=== PATIENT | female | born 1965 | race Caucasian/White ===

== ENCOUNTER → 2016-07-24 | Outpatient (REF) | payer BC | LOC: M SFHCWAGY 14:24 | PROVIDERS: ATTEND Nurse Practitioner Women's Health | DX: Z12.4 Encounter for screening for malignant neoplasm of cervix (principal) ==

== ENCOUNTER → 2016-07-24 | Outpatient (CLI) | payer BC ==
--- NOTE | 2016-07-24 15:09 | REPMRS ---
Patient History The patient states she had a clinical breast exam in 07/2016. No known family history of cancer. Taking hormonal contraceptives for 12 years. Digital Woman Screen Mammo: July 24, 2016 - Exam #: [id number] Bilateral CC and MLO view(s) were taken. Technologist: Naomy Phillips, Technologist Prior study comparison: May 25, 2015, digital woman screen mammo performed at [facility]. March 24, 2014, digital woman screen mammo performed at [facility]. November 25, 2012, digital woman screen mammo performed at [facility]. FINDINGS: There are scattered fibroglandular densities. There has been no change in the appearance of the mammogram from the prior studies. There is a mild amount of scattered fibroglandular density which is fairly symmetric. There is no interval development of dominant mass, architectural distortion, or clustered microcalcification suggestive of malignancy. ASSESSMENT: BI-RADS/ACR category 1 mammogram. Negative. Recommendation Routine screening mammogram in 1 year (for women over age 40). This mammogram was interpreted with the aid of an FDA-approved computer-aided dectection system. Electronically Signed By: Serafin Cook MD 07/24/16 5828
== END ==
LOC: M WHC 13:11
PROVIDERS: ATTEND Nurse Practitioner Women's Health
DX: Z12.31 Encounter for screening mammogram for malignant neoplasm of breast (principal)

== ENCOUNTER → 2017-07-25 | Outpatient (REF) | payer BC | LOC: M SFHCWAGY 13:23 | DX: Z12.4 Encounter for screening for malignant neoplasm of cervix (principal) | CPT/HCPCS: G0123 ==

== ENCOUNTER → 2017-07-25 | Outpatient (CLI) | payer BC | LOC: M WHC 13:13 | DX: Z12.31 Encounter for screening mammogram for malignant neoplasm of breast (principal) | CPT/HCPCS: 77067 ==

== ENCOUNTER → 2018-08-25 | Outpatient (CLI) | payer BC ==
--- NOTE | 2018-08-25 11:07 | REPMRS ---
Patient History The patient states she had a clinical breast exam in 08/2018. No known family history of cancer. Taking hormonal contraceptives for 14 years. Digital Woman Screen Mammo: August 25, 2018 - Exam #: [id number] Bilateral CC and MLO view(s) were taken. Technologist: Naomy Phillips, Technologist Prior study comparison: July 25, 2017, digital woman screen mammo performed at [facility]. November 25, 2012, digital woman screen mammo performed at [facility]. FINDINGS: There are scattered fibroglandular densities. Bilateral screening digital mammogram with tomosynthesis: The patient states that there are no palpable abnormalities or other breast complaints. The patient's Ty[place] Lifetime Breast Carcinoma Risk is:12.1 There are scattered areas of fibroglandular density.. There is no interval development of dominant mass, areas of architectural distortion, or clustered microcalcification typical of malignancy. There are no additional findings on tomosynthesis. No significant changes when compared with prior studies. Assessment: BI-RADS/ACR category 1 mammogram. Negative Mammogram. Recommendation Routine screening mammogram in 1 year (for women over age 40). This mammogram was interpreted with the aid of an FDA-approved computer-aided dectection system. A. Negative x-ray reports should not delay biopsy if a dominant or clinically suspicious mass is present. B. Not all cancers are identified by mammography. C. Adenosis and dense breast may obscure an underlying neoplasm. Electronically Signed By: Hugh Cooper M.D. 08/25/18 0601
== END ==
LOC: M WHC 09:38
PROVIDERS: ATTEND Nurse Practitioner Women's Health
DX: Z12.31 Encounter for screening mammogram for malignant neoplasm of breast (principal); Z79.3 Long term (current) use of hormonal contraceptives

== ENCOUNTER 2019-03-28 13:27 | Observation (INO) | payer BC ==
[2019-03-28] MEDS ORDERED: SUMA100T2 PO (13:44)
[2019-03-28] MEDS ORDERED: SRONYX (13:44)
[2019-03-28] MEDS ORDERED: LEVO75TA4 PO (13:44)
[2019-03-28] MEDS ORDERED: NS 1,000 ML IV ONE (13:45)
[2019-03-28 13:52] LABS: BASO % 0.2 % (0.0-1.0); EOS # 0.1 10^3/uL (0.0-0.5); EOS % 0.7 % (0.0-3.0); HEMATOCRIT 40.2 % (36.0-47.0); HEMOGLOBIN 12.8 g/dl (12.0-15.5); LYMPH # 3.2 10^3/uL (1.5-5.0); LYMPH % 35.6 % (24.0-44.0); MEAN CORPUSCULAR HEMOGLOBIN 30.6 pg (27.0-33.0); MEAN CORPUSCULAR HGB CONC 31.8 g/dl (32.0-36.5); MEAN CORPUSCULAR VOLUME 96.2 fl (80.0-96.0); MONO # 0.4 10^3/uL (0.0-0.8); MONO % 4.8 % (0.0-5.0); NEUTROPHILS # 5.2 10^3/uL (1.5-8.5); NEUTROPHILS % 58.5 % (36.0-66.0); PLATELET COUNT, AUTOMATED 194 10^3/uL (150-450); RED BLOOD COUNT 4.18 10^6/uL (4.00-5.40); WHITE BLOOD COUNT 8.9 10^3/uL (4.0-10.0)
[2019-03-28] MEDS ORDERED: LEVO0.1T PO (13:56)
[2019-03-28] MEDS ORDERED: ONDANSETRON 4MG/2ML VIAL (J2405) IV ONE (14:00)
[2019-03-28 14:11] LABS: INR 1.01
[2019-03-28 14:12] LABS: PARTIAL THROMBOPLASTIN TIME 27.2 SECONDS (25.0-38.4)
--- NOTE | 2019-03-28 14:22 | REP ---
AP PORTABLE CHEST: 03/28/2019. Clinical history: Chest pain. Findings: The upright AP chest shows lungs well inflated and clear. CP angles sharply defined. There is no effusion, infiltrate, atelectasis or mass. Heart, mediastinal and hilar contours are normal. Aorta and airway intact. Bones are unremarkable. No free air under the diaphragm. Impression: 1. No acute cardiopulmonary change. Electronically Signed by Stoney Henry MD 03/28/2019 02:13 P
[2019-03-28 14:23] LABS: ALBUMIN 3.9 GM/DL (3.2-5.2); ALT/SGPT 18 U/L (12-78); BILIRUBIN,DIRECT < 0.1 MG/DL (0.0-0.2); BILIRUBIN,TOTAL 0.2 MG/DL (0.2-1.0); BLOOD UREA NITROGEN 14 MG/DL (7-18); CALCIUM LEVEL 8.9 MG/DL (8.5-10.1); CARBON DIOXIDE LEVEL 27 MEQ/L (21-32); CHLORIDE LEVEL 108 MEQ/L (98-107); CK-MB VALUE MASS < 1.0 NG/ML (<3.6); CPK CREATINE PHOSPHOKINASE 79 U/L (26-192); CREATININE FOR GFR 0.82 MG/DL (0.55-1.30); FREE T4 1.15 NG/DL (0.76-1.46); GLOMERULAR FILTRATION RATE > 60.0 (>51); GLUCOSE, FASTING 90 MG/DL (70-100); LIPASE 118 U/L (73-393); MAGNESIUM LEVEL 2.3 MG/DL (1.8-2.4); MB/CK RELATIVE INDEX 1.27 (< OR =4); POTASSIUM SERUM 3.7 MEQ/L (3.5-5.1); SODIUM LEVEL 140 MEQ/L (136-145); TOTAL PROTEIN 7.3 GM/DL (6.4-8.2); TROPONIN I < 0.02 NG/ML (< 0.10)
[2019-03-28] MEDS ORDERED: SUMAtriptan SUCCINATE 25 MG TAB PO PRN (15:15)
[2019-03-28] MEDS ORDERED: MAALOX 30 ML SUSP *UDC PO PRN (15:15)
[2019-03-28] MEDS ORDERED: MOM 30ML SUSPENSION UDC PO PRN (15:15)
[2019-03-28] MEDS ORDERED: ACETAMINOPHEN TAB 650MG DOSE (2X325MG) PO PRN (15:15)
--- NOTE | 2019-03-28 15:23 | HPEPDOC ---
General Date of Admission 03/28/19 Date of Service: Mar 28, 2019 Chief Complaint The patient is a 53-year-old female admitted with a reason for visit of Syncope. Source: Patient Exam Limitations: No limitations Timing/Duration: This afternoon, Other Severity: Other ( not applicable) Associated Symptoms: Diaphoresis, Other (syncope with LOC for 30 seconds) History of Present Illness 53 years old white female past medical history of hypothyroidism, migraine headache, was having the lunch with her friends while she eating salad. She had a sudden episode of diaphoresis followed by syncopal episode for possible consciousness for 30 seconds, people from nearby table performed to do a CPR on her by forcing the air in her mouth. Patient is asymptomatic in no distress. Off ers no complaints at the present time. Patient denies any aura or seizure-like activity or postictal symptoms. On the scene. Home Medications Scheduled Levonorgestrel-Ethin Estradiol (Levonor-Eth Estrad 0.1-0.02 mg) 1 Each Tablet, 1 TAB PO DAILY, (Reported) Levothyroxine Sodium (Levothyroxine Sodium) 75 Mcg Tablet, 75 MCG PO DAILY, (Reported) Scheduled PRN Sumatriptan Succinate (Sumatriptan Succinate) 100 Mg Tablet, 100 MG PO DAILY PRN for MIGRAINE, (Reported) MAY REPEAT AFTER ONE HOUR IF SYMPTOMS PERSIST Allergies Coded Allergies: No Known Allergies (Verified , 09/07/02) Past Medical History Medical History Hypothyroidism, migraine headaches Surgical History None Family History Significant Family History: No pertinent family hx Social History * Smoker: Denies Alcohol: Denies Drugs: denies A-FIB/CHADSVASC A-FIB History Current/History of A-Fib/PAF?: No Review of Systems Constitutional: Denies: Chills, Fever, Malaise, Night Sweats, Weakness, Fatigue, Weight Loss, Lethargy, Other Eyes: Denies: Pain, Vision change, Conjunctivae inflammation, Eyelid inflammation, Redness, Other ENT: Denies: Head Aches, Ear Pain, Dysphagia, Sinus Congestion, Post Nasal Drip, Sore Throat, Epistaxis, Other Symptoms Skin: Denies: Rash, Lesions, Jaundice, Bruising, Itching, Dry, Breakdown, Nail Changes, Other Pulmonary: Denies: Dyspnea, Cough, Pleuritic Chest Pain, Other Symptoms Cardiovascular: Reports: Other Symptoms; Denies: Chest Pain, Palpitations, Orthopnea, Paroxysmal Noc. Dyspnea, Edema, Lt Headedness Gastrointestinal: Denies: Nausea, Vomiting, Abdominal Pain, Diarrhea, Constipation, Melena, Hematochezia, Other Symptoms Genitourinary: Denies: Dysuria, Frequency, Incontinence, Hematuria, Retention, Other Symptoms Hematologic: Denies: Bruising, Bleeding Excessively, Petecchia, Purpura, En larged Lymph Nodes, Other Hematologic Endocrine: Denies: Polydipsia, Polyphagia, Polyuria, Heat Intolerance, Cold Intolerance, Other Endocrine Sx Musculoskeletal: Denies: Neck Pain, Back Pain, Shoulder Pain, Arm Pain, Hand Pain, Leg Pain, Foot Pain, Joint Pain, Muscle Pain, Spasms, Other Symptoms Neurological: Reports: Other Symptoms (, syncope with LOC for 30 seconds) Psych: Denies: Mood Normal, Anxiety, Depression, Memory Issues, Thoughts of Self Harm, Anger, Thoughts of Harming Other, Other Psych Physical Examination General Exam: Positive: Alert, Cooperative Eye Exam: Positive: PERRLA, Conjunctiva & lids normal, EOMI ENT Exam: Positive: Atraumatic Neck Exam: Positive: Supple Chest Exam: Positive: Clear to auscultation, Normal air movement Heart Exam: Positive: Rate Normal, Normal S1, Normal S2 Abdomen Exam: Positive: Normal bowel sounds, Soft Extremity Exam: Positive: Normal pulses Skin Exam: Positive: Nl turgor and temperature Neuro Exam: Positive: Strength at 5/5 X4 ext, Sensation Intact, Cranial Nerves 3-12 NL Psych Exam: Positive: Mood NL, Oriented x 3 Vital Signs Vital Signs Date Time Temp Pulse Resp B/P (MAP) Pulse Ox O2 Delivery O2 Flow Rate FiO2 03/28/19 13:34 96.7 79 16 121/70 100 Room Air Laboratory Data Labs 24H Laboratory Tests 2 03/28/19 13:40: Prothrombin Time 13.0, Prothromb Time International Ratio 1.01, Activated Partial Thromboplast Time 27.2 03/28/19 13:41: Immature Granulocyte % (Auto) 0.2, Neutrophils (%) (Auto) 58.5, Lymphocytes (%) (Auto) 35.6, Monocytes (%) (Auto) 4.8, Eosinophils (%) (Auto) 0.7, Basophils (%) (Auto) 0.2, Neutrophils # (Auto) 5.2, Lymphocytes # (Auto) 3.2, Monocytes # (Auto) 0.4, Eosinophils # (Auto) 0.1, Basophils # (Auto) 0.0, Nucleated Red Blood Cells % (auto) 0.0, Anion Gap 5L, Glomerular Filtration Rate > 60.0, Calcium Level 8.9, Magnesium Level 2.3, Total Bilirubin 0.2, Direct Bilirubin < 0.1, Aspartate Amino Transf (AST/SGOT) 15, Alanine Aminotransferase (ALT/SGPT) 18, Alkaline Phosphatase 58, Total Creatine Kinase 79, Creatine Kinase MB < 1.0, Creatine Kinase MB Relative Index 1.27, Troponin I < 0.02, Total Protein 7.3, Albumin 3.9, Albumin/Globulin Ratio 1.15, Lipase 118, Thyroid Stimulating Hormone (TSH) 7.000H, Free Thyroxine 1.15 03/28/19 13:42: POC Glucose (Misc Panel) 98, POC Sodium (Misc Panel) 140, POC Potassium (Misc Panel) 3.4L, POC Chloride (Misc Panel) 106, POC Total CO2 (Misc Panel) 23.0, POC Blood Urea Nitrogen (Misc Panel 14, POC Ionized Calcium (Misc Panel) 4.8, POC Creatinine (Misc Panel) 0.7, POC Hematocrit (Misc Panel) 40.0 CBC/BMP Laboratory Tests 03/28/19 13:41 Problems (1) Syncope Status: Acute Problem Text: 53 years old white female past medical history of hypothyroidism, migraine headache, was having the lunch with her friends while she eating salad. She had a sudden episode of diaphoresis followed by syncopal episode for possible consciousness for 30 seconds, people from nearby table performed to do a CPR on her by forcing the air in her mouth. Patient is asymptomatic in no distress. Offers no complaints at the present time. Patient denies any aura or seizure-like activity or postictal symptoms. On the scene. Admit to PCU with telemetry to cardiac rhythm IVF normal saline or diseases per hour Echocardiogram Carotid Dopplers Troponins CT head Chest x-ray UA Serum magnesium Activity as tolerated And regular DVT prophylaxis with heparin Attending home meds (2) Migraine Status: Chronic Problem Text: Continue home meds (3) Hypothyroid Status: Chronic Problem Text: TSH is a elevated to 7.0 will order free T4 as well as lipid levels in a.m. Continue home Synthroid dosage Plan / VTE VTE Prophylaxis Ordered?: Yes GOLDEN GRESHAM MD Mar 28, 2019 15:23
[2019-03-28 16:14] VITALS: BP 160/92
[2019-03-28] MEDS: ASPIRIN 81 MG ENTERIC TAB PO SCH (16:32)
[2019-03-28] MEDS: NS 1,000 ML IV SCH (16:32)
--- NOTE | 2019-03-28 16:44 | ECGEPIP ---
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
[2019-03-28 20:00] VITALS: BP 136/77
[2019-03-28] MEDS: HEPARIN SOD (PORCINE) 5000 UNITS/ML VIAL (J1644 PER 1000UNITS) SC SCH (20:30)
[2019-03-28 21:30] LABS: APPEARANCE, URINE CLEAR (CLEAR); BACTERIA, URINE AUTO NEGATIVE (NEGATIVE); BILIRUBIN, URINE AUTO NEGATIVE (NEGATIVE); BLOOD, URINE BLOOD NEGATIVE (NEGATIVE); COLOR, URINE YELLOW (YELLOW); GLUCOSE, URINE (UA) AUTO NEGATIVE (NEGATIVE); KETONE, URINE AUTO NEGATIVE (NEGATIVE); LEUKOCYTE ESTERASE, URINE AUTO NEGATIVE (NEGATIVE); NITRITE, URINE AUTO NEGATIVE (NEGATIVE); PROTEIN, URINE AUTO NEGATIVE (NEGATIVE); RBC, URINE AUTO 0 /HPF (0-3); SQUAMOUS EPITHELIAL CELL UR AU 1 /HPF (0-6); UROBILINOGEN, URINE AUTO 0.2 mg/dL (0.0-2.0); WBC, URINE AUTO 1 /HPF (0-3)
[2019-03-28 22:47] LABS: FREE T4 1.04 NG/DL (0.76-1.46); MAGNESIUM LEVEL 2.1 MG/DL (1.8-2.4); TROPONIN I < 0.02 NG/ML (< 0.10)
[2019-03-29] VITALS: BP 121/68
[2019-03-29] MEDS: NS 1,000 ML IV SCH (02:43)
[2019-03-29 04:00] VITALS: BP 119/60
[2019-03-29 05:24] LABS: HEMATOCRIT 35.2 % (36.0-47.0); HEMOGLOBIN 11.3 g/dl (12.0-15.5); MEAN CORPUSCULAR HEMOGLOBIN 30.5 pg (27.0-33.0); MEAN CORPUSCULAR HGB CONC 32.1 g/dl (32.0-36.5); MEAN CORPUSCULAR VOLUME 94.9 fl (80.0-96.0); PLATELET COUNT, AUTOMATED 163 10^3/uL (150-450); RED BLOOD COUNT 3.71 10^6/uL (4.00-5.40); WHITE BLOOD COUNT 5.9 10^3/uL (4.0-10.0)
[2019-03-29 05:55] LABS: ALBUMIN 3.3 GM/DL (3.2-5.2); ALT/SGPT 17 U/L (12-78); BILIRUBIN,TOTAL 0.4 MG/DL (0.2-1.0); BLOOD UREA NITROGEN 9 MG/DL (7-18); CALCIUM LEVEL 7.9 MG/DL (8.5-10.1); CARBON DIOXIDE LEVEL 25 MEQ/L (21-32); CHLORIDE LEVEL 113 MEQ/L (98-107); CHOLESTEROL LEVEL 125 MG/DL (<200); CREATININE FOR GFR 0.54 MG/DL (0.55-1.30); GLOMERULAR FILTRATION RATE > 60.0 (>51); GLUCOSE, FASTING 88 MG/DL (70-100); HDL CHOLESTEROL 71 MG/DL (>40); LDL CHOLESTEROL 44 MG/DL (<100); MAGNESIUM LEVEL 2.3 MG/DL (1.8-2.4); NON-HDL-C 54 MG/DL; SODIUM LEVEL 142 MEQ/L (136-145); TRIGLYCERIDES LEVEL 52 MG/DL (<150); TROPONIN I < 0.02 NG/ML (< 0.10)
[2019-03-29] MEDS ORDERED: LEVOTHYROXINE 75MCG TABLET (0.075MG) PO SCH (06:00)
--- NOTE | 2019-03-29 07:12 | REP ---
CT BRAIN WITHOUT CONTRAST: 03/28/2019. Clinical history: Syncope. Technique: Standard protocol with axial soft-tissue and bone windows with coronal soft tissue reconstructions. Findings: The lateral ventricles are midline, symmetric and without dilatation or displacement. Basal ganglia are symmetric and normal. Escamilla/white junction differentiation is well maintained. Cortical stripe is preserved. I do not see significant atrophy, but sulci are age appropriate. There is no vascular territory infarct, hemorrhage, mass, mass effect or extra-axial fluid collection. No white matter tract abnormalities are identified. The brainstem and cerebellum grossly intact. Basal cisterns intact. Mastoids, visualized sinuses, skull base and calvarium were grossly intact as well. Impression: 1. Normal noncontrast CT brain. No intracranial hemorrhage, acute infarct, mass, edema or mass effect. 2. Sinuses, mastoids, skull base and calvarium without acute finding. Electronically Signed by Stoney Henry MD 03/29/2019 08:06 P
[2019-03-29 07:14] VITALS: BP 136/81
--- NOTE | 2019-03-29 07:34 | REP ---
CAROTID DUPLEX ULTRASOUND: 03/28/2019. Clinical history: Syncope. Findings: There are no prior studies. Standard duplex techniques utilized bilaterally to study the carotid systems. The right common carotid shows some minimal intimal thickening but no significant soft or mixed plaque. There is some soft plaque at the bulb. Likewise the left common carotid shows only scattered areas of some intimal thickening and minimal soft plaque without calcific or mixed plaque. Peak velocities: Right Left CCA systolic 1.35 m/s 1.23 m/s ICA systolic 1.03 m/s 1.03 m/s ICA diastolic 0.47 m/s 0.38 m/s ECA systolic 1.04 m/s 0.90 m/s ICA/CCA ratio 0.76 0.84 Cranial direction of flow is seen in the vertebral arteries bilaterally. The Doppler waveform shows no significant spectral broadening or filling of the systolic window on either side. Antegrade flow appears to be maintained in the carotid systems bilaterally. Impression: 1. Minimal carotid soft plaque noted without any significant stenosis or flow restriction. There is no visible stenosis on this examination. 2. Cranial direction of flow in the vertebral arteries. Electronically Signed by Stoney Henry MD 03/29/2019 08:09 P
[2019-03-29] MEDS: ASPIRIN 81 MG ENTERIC TAB PO SCH (08:01)
[2019-03-29] MEDS: HEPARIN SOD (PORCINE) 5000 UNITS/ML VIAL (J1644 PER 1000UNITS) SC SCH (08:01)
--- NOTE | 2019-03-29 11:08 | ECGEPIP ---
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
--- NOTE | 2019-03-29 11:30 | DS.PDOC ---
Discharge Summary General Date of Admission Mar 28, 2019 at 13:28 Date of Discharge 03/29/19 Discharge Summary PROCEDURES PERFORMED DURING STAY: None. ADMITTING DIAGNOSES: 1. Syncope. DISCHARGE DIAGNOSES: 1. Vasovagal syncope, hypothyroidism, migraine headache COMPLICATIONS/CHIEF COMPLAINT: Syncope. HISTORY OF PRESENT ILLNESS: 53 years old white female past medical history of hypothyroidism, migraine headache, was having the lunch with her friends while she eating salad. She had a sudden episode of diaphoresis followed by syncopal episode for possible consciousness for 30 seconds, people from nearby table performed to do a CPR on her by forcing the air in her mouth. Patient is asymptomatic in no distress. Offers no complaints at the present time. Patient denies any aura or seizure-like activity or postictal symptoms. On the scene.. HOSPITAL COURSE: Patient was admitted with the diagnosis of syncope with LOC for a few seconds. She was admitted to PCU with telemetry monitoring. Patient had CT of the brain done which was essentially negative as well as carotid Dopplers were nonobstructing artery stenosis. Patient's laboratory work including troponin essentially negative. She needs an echocardiogram, but patient wishes to leave now. Once very done as an outpatient. Patient is clinically stable, most likely cause of her syncope was vasovagal syncope. Patient can be discharged home and follow with her [place] physician, Dr. Puckett follow-up pending workup, which includes echocardiogram. Patient will continue all her home medications.. DISCHARGE MEDICATIONS: Please see below. ALLERGIES: Please see below. PHYSICAL EXAMINATION ON DISCHARGE: VITAL SIGNS: Please see below. GENERAL: Within normal limits HEENT: PERRLA, extra ocular muscles intact NECK: Supple CARDIOVASCULAR EXAMINATION: S1, S2, regular, RESPIRATORY EXAMINATION: Clear to A&P ABDOMINAL EXAMINATION: Benign EXTREMITIES: No clubbing, cyanosis, edema SKIN: Normal NEUROLOGICAL EXAMINATION: . No focal motor sensory deficit PSYCHIATRIC EXAMINATION: Normal LABORATORY DATA: Please see below. IMAGING: CT head: Impression: 1. Normal noncontrast CT brain. No intracranial hemorrhage, acute infarct, mass, edema or mass effect. 2. Sinuses, mastoids, skull base and calvarium without acute finding PROGNOSIS: Good ACTIVITY: As tolerated. DIET: Regular DISCHARGE PLAN: Discharged home DISPOSITION: Home, Self-Care. DISCHARGE INSTRUCTIONS: 1. As per discharge instructions. ITEMS TO FOLLOWUP ON ON OUTPATIENT: 1. Follow PCP in one week for echocardiogram and hypothyroidism with elevated TSH DISCHARGE CONDITION: Stable. TIME SPENT ON DISCHARGE: 25 minutes. Vital Signs/I&Os Vital Signs Date Time Temp Pulse Resp B/P (MAP) Pulse Ox O2 Delivery O2 Flow Rate FiO2 03/29/19 07:14 98.2 71 16 136/81 (99) 96 Room Air I&O- Last 24 Hours up to 6 AM 03/29/19 06:00 Intake Total 1440 ml Output Total 0 ml Balance 1440 ml Laboratory Data Labs 24H Laboratory Tests 2 03/28/19 13:40: Prothrombin Time 13.0, Prothromb Time International Ratio 1.01, Activated Partial Thromboplast Time 27.2 03/28/19 13:41: Immature Granulocyte % (Auto) 0.2, Neutrophils (%) (Auto) 58.5, Lymphocytes (%) (Auto) 35.6, Monocytes (%) (Auto) 4.8, Eosinophils (%) (Auto) 0.7, Basophils (%) (Auto) 0.2, Neutrophils # (Auto) 5.2, Lymphocytes # (Auto) 3.2, Monocytes # (Auto) 0.4, Eosinophils # (Auto) 0.1, Basophils # (Auto) 0.0, Nucleated Red Blood Cells % (auto) 0.0, Anion Gap 5L, Glomerular Filtration Rate > 60.0, Calcium Level 8.9, Magnesium Level 2.3, Total Bilirubin 0.2, Direct Bilirubin < 0.1, Aspartate Amino Transf (AST/SGOT) 15, Alanine Aminotransferase (ALT/SGPT) 18, Alkaline Phosphatase 58, Total Creatine Kinase 79, Creatine Kinase MB < 1.0, Creatine Kinase MB Relative Index 1.27, Troponin I < 0.02, Total Protein 7.3, Albumin 3.9, Albumin/Globulin Ratio 1.15, Lipase 118, Thyroid Stimulating Hormo ne (TSH) 7.000H, Free Thyroxine 1.15 03/28/19 13:42: POC Glucose (Misc Panel) 98, POC Sodium (Misc Panel) 140, POC Potassium (Misc Panel) 3.4L, POC Chloride (Misc Panel) 106, POC Total CO2 (Misc Panel) 23.0, POC Blood Urea Nitrogen (Misc Panel 14, POC Ionized Calcium (Misc Panel) 4.8, POC Creatinine (Misc Panel) 0.7, POC Hematocrit (Misc Panel) 40.0 03/28/19 21:15: Urine Color YELLOW, Urine Appearance CLEAR, Urine pH 7.0, Urine Specific [place] 1.010, Urine Protein NEGATIVE, Urine Glucose (Auto)(UA) NEGATIVE, Urine Ketones (Auto) NEGATIVE, Urine Blood NEGATIVE, Urine Nitrite NEGATIVE, Urine Bilirubin NEGATIVE, Urine Urobilinogen 0.2, Urine Leukocyte Esterase (Auto) NEGATIVE, Urine WBC (Auto) 1, Urine RBC (Auto) 0, Urine Hyaline Casts (Auto) 0, Urine Bacteria (Auto) NEGATIVE, Urine Squamous Epithelial Cells 1, Urine Sperm (Auto) 03/28/19 22:15: Magnesium Level 2.1, Troponin I < 0.02, Free Thyroxine 1.04 03/29/19 05:01: Magnesium Level 2.3, Troponin I < 0.02, Nucleated Red Blood Cells % (auto) 0.0, Anion Gap 4L, Glomerular Filtration Rate > 60.0, Calcium Level 7.9L, Total Bilirubin 0.4#, Aspartate Amino Transf (AST/SGOT) 12, Alanine Aminotransferase (ALT/SGPT) 17, Alkaline Phosphatase 49, Total Protein 6.0L, Albumin 3.3, Albumin/Globulin Ratio 1.22, Triglycerides Level 52, Total Cholesterol 125, LDL Cholesterol 44, Non-HDL Cholesterol (LDL + VLDL) 54, Total HDL Cholesterol 71, Cholesterol/HDL Ratio 1.760 CBC/BMP Laboratory Tests 03/28/19 13:41 03/29/19 05:01 Discharge Medications Scheduled Levonorgestrel-Ethin Estradiol (Levonor-Eth Estrad 0.1-0.02 mg) 1 Each Tablet, 1 TAB PO DAILY, (Reported) Levothyroxine Sodium (Levothyroxine Sodium) 75 Mcg Tablet, 75 MCG PO DAILY, (Reported) Scheduled PRN Sumatriptan Succinate (Sumatriptan Succinate) 100 Mg Tablet, 100 MG PO DAILY PRN for MIGRAINE, (Reported) MAY REPEAT AFTER ONE HOUR IF SYMPTOMS PERSIST Allergies Coded Allergies: No Known Allergies (Verified , 09/07/02) GOLDEN GRESHAM MD Mar 29, 2019 11:30
== END 2019-03-29 10:48 | disposition home or self-care (01) ==
LOC: M ED 13:27 → EDBD 13:27 → M ED INP 13:28 → ENRESERVDT 15:20 → ENRESERVTM 15:20 → M PCU 16:09
PROVIDERS: ADMIT Internal Medicine; ATTEND Internal Medicine
DX: R55 Syncope and collapse (principal); R94.6 Abnormal results of thyroid function studies; E03.9 Hypothyroidism, unspecified; G43.909 Migraine, unspecified, not intractable, without status migrainosus; Z79.899 Other long term (current) drug therapy
CPT/HCPCS: 36415; 70450; 71045; 80047; 80048; 80053; 80061; 80076; 81001; 82550; 82553; 83690; 83735; 84439; 84443; 84484; 85025; 85027; 85610; 85730; 93005; 93041; 93880; 94760; 96361; 96374; 99285; J2405

== ENCOUNTER → 2019-04-15 | Outpatient (CLI) | payer BC ==
[~2019-04-15] MED LIST: LEVO0.1T PO; LEVO75TA4 PO; SRONYX; SUMA100T2 PO
[2019-04-15 18:10] LABS: FOLLICLE STIMULATING HORMONE 113.2 mIU/mL; LUTEINIZING HORMONE 42.5 mIU/mL
== END ==
LOC: M PLALAB 13:24
PROVIDERS: ATTEND Nurse Practitioner Women's Health
DX: N95.1 Menopausal and female climacteric states (principal)

== ENCOUNTER → 2019-10-06 | Outpatient (CLI) | payer BC ==
--- NOTE | 2019-10-28 10:26 | REPMRS ---
Patient History The patient states she had a clinical breast exam in October 2019.No known family history of cancer. Taking hormonal contraceptives for 14 years. Digital Woman Screen Mammo: October 06, 2019 - Exam #: [id number] Bilateral CC and MLO view(s) were taken. Technologist: Dotty Rajput, Technologist Prior study comparison: August 25, 2018, bilateral digital woman screen mammo performed at [facility]. July 25, 2017, digital woman screen mammo performed at [facility]. July 24, 2016, digital woman screen mammo performed at [facility]. FINDINGS: There are scattered fibroglandular densities. The Volpara volumetric breast density category is:B. There has been no change in the appearance of the mammogram from the prior studies. There is a mild amount of scattered fibroglandular density which is fairly symmetric. There is no interval development of dominant mass, architectural distortion, or grouped microcalcification suggestive of malignancy. 3-D tomosynthesis shows no additional findings. Assessment: BI-RADS/ACR category 1 mammogram. Negative Mammogram. Recommendation Routine screening mammogram of both breasts in 1 year (for women over age 40). This patient's Lifetime Breast Cancer Risk is estimated at 11.9 %. This mammogram was interpreted with the aid of an FDA-approved computer-aided dectection system. Electronically Signed By: Serafin Cook MD 10/28/19 0199
== END ==
LOC: M WHC 16:55
PROVIDERS: ATTEND Nurse Practitioner Women's Health
DX: Z12.31 Encounter for screening mammogram for malignant neoplasm of breast (principal)

== ENCOUNTER → 2019-10-06 | Outpatient (REF) | payer BC | LOC: M SFHCWAGY 09:43 | PROVIDERS: ATTEND Nurse Practitioner Women's Health | DX: Z12.4 Encounter for screening for malignant neoplasm of cervix (principal) ==

== ENCOUNTER → 2021-12-27 | Outpatient (REF) | payer BC | LOC: M PLALAB 14:13 | PROVIDERS: ATTEND Advanced Practice Midwife | DX: Z12.4 Encounter for screening for malignant neoplasm of cervix (principal) | CPT/HCPCS: 87624; G0123 ==

== ENCOUNTER → 2021-12-27 | Outpatient (CLI) | payer BC | LOC: M WHC 14:01 | PROVIDERS: ATTEND Advanced Practice Midwife | DX: Z12.31 Encounter for screening mammogram for malignant neoplasm of breast (principal) ==

== ENCOUNTER → 2024-09-10 | Outpatient (CLI) | payer BC | LOC: M WHC 13:48 | PROVIDERS: ATTEND Advanced Practice Midwife | DX: Z12.31 Encounter for screening mammogram for malignant neoplasm of breast (principal); R92.313 Mammographic fatty tissue density, bilateral breasts ==